=== PATIENT | male | born 1985 | race Caucasian/White ===

== ENCOUNTER 2024-03-29 16:13 | Emergency (ER) | payer OTHER, SELFPAY ==
[2024-03-29 16:28] VITALS: BP 120/74; PULSE 63; RESP 16; TEMP 36.6; O2SAT 100
--- NOTE | 2024-03-29 16:41 | ED.SKABFB ---
HPI - Skin/Abscess/Foreign Bdy General Chief complaint: Skin/Abscess/Foreign Body Stated complaint: Bee Sting/Right Hand Time Seen by Provider: 03/29/24 16:42 Source: patient Mode of arrival: ambulatory Limitations: no limitations History of Present Illness HPI narrative: 39-year-old male presents with complaint of bee sting to right ring finger. Reports redness, swelling and itching. Patient's stung by a bee yesterday when turning off water for hose. 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 No difficulty swallowing or breathing. Has not taken antihistamine. All systems reviewed and negative except as noted above. Related Data Home Medications Medication Instructions Recorded Confirmed No Home Medications 11/28/22 11/28/22 Allergies Allergy/AdvReac Type Severity Reaction Status Date / Time No Known Allergies Allergy Verified 11/28/22 14:29 Review of Systems Review of Systems: CONSTITUTIONAL: Denies fever, chills, or sweats. EYES: Denies visual changes, redness, or discharge. ENT: Denies rhinorrhea, congestion, sore throat, or otalgia. CARDIOVASCULAR: Denies chest pain, palpitations, or edema. RESPIRATORY: Denies cough or dyspnea. GASTROINTESTINAL: Denies abdominal pain, nausea, vomiting, or diarrhea. GENITOURINARY: Denies dysuria or hematuria. SKIN: Denies rash or itching. Reports redness, swelling and itching to right hand. MUSCULOSKELETAL: Denies back pain, joint pain, or myalgia. NEUROLOGIC: Denies headache, numbness, or weakness. PSYCHIATRIC: Denies anxiety or depression. All other systems reviewed are negative, except as documented in HPI. PMFSH Social History Social History Smoking status: Never smoker Comments At time of signature, agree with nursing past medical, surgical, social and family history. There is no relevant family history pertinent to the presenting complaint. Exam Narrative: GENERAL: This is a well-nourished, well-developed patient, in no apparent distress. HEAD: normocephalic, atraumatic. EYES: PERRL. Sclera clear/white. Vision is grossly intact. EARS: External ears normal NOSE: External nose normal NECK: Neck supple, non-tender without lymphadenopathy, masses or thyromegaly. CARDIOVASCULAR: Regular rate and rhythm without murmurs, gallops, or rubs. RESPIRATORY: Clear to auscultation. Breath sounds equal bilaterally. No wheezes, rales, or rhonchi. SKIN: warm, Dry, intact with no suspicious lesions or rash, good texture and turgor. There is erythema, swelling with mild warmth to proximal aspect right ring finger and distal aspect of right 5th metacarpal. NEURO: awake, alert, and oriented to person, place and time. There were no obvious focal neurologic abnormalities. EXTREMITIES: No joint tenderness, effusion, or edema noted. Course Course Level of Care: Express Care Visit Vital Signs Vital signs: Vital Signs Temperature 36.6 C 03/29/24 16:28 Pulse Rate 63 03/29/24 16:28 Respiratory Rate 16 03/29/24 16:28 Blood Pressure 120/74 03/29/24 16:28 Pulse Oximetry 100 03/29/24 16:28 Oxygen Delivery Room Air 03/29/24 16:28 Temperature 36.6 C 03/29/24 16:28 Pulse Rate 63 03/29/24 16:28 Respiratory Rate 16 03/29/24 16:28 Blood Pressure 120/74 03/29/24 16:28 Pulse Oximetry 100 03/29/24 16:28 Oxygen Delivery Room Air 03/29/24 16:28 Reviewed MDM - Skin/Abscess/Foreign Bdy MDM Narrative Medical decision making narrative: Patient is aware of diagnosis, understands and agrees to treatment plan. Anticipatory guidance given. Patient agrees to follow-up as directed and is aware of reasons to seek care at the emergency department. Portions of this record may have been created with voice recognition software Differential Diagnosis Differential diagnosis: Likely insect bites Discharge Plan Discharge Clinical Impression: Accidental bee sting Patient Disposition: Ho
[2024-03-29] MEDS: dexAMETHasone SOD PHOS INJ 10 MG/ML 1 ML VIAL IM (16:51)
== END 2024-03-29 17:04 | disposition home or self-care (01) ==
PROVIDERS: Emergency Provider Nurse Practitioner Family; PCP Family Medicine
DX: T63.441A Toxic effect of venom of bees, accidental (unintentional), initial encounter (principal)
CPT/HCPCS: 96372; 99213; G0463; J1100